=== PATIENT | male | born 1970 | race African-American/Black ===

== ENCOUNTER 2019-06-21 14:24 | Emergency (ER) | payer OTHER ==
[~2019-06-21] VITALS: Ht 172.7 cm; Wt 81.6 kg
[2019-06-21] MEDS ORDERED: ZYPREXA5 MG ORAL (14:36)
[2019-06-21] MEDS ORDERED: CYMBALTA30 MG ORAL (14:36)
[2019-06-21] MEDS ORDERED: DEPAKOTE250 MG PO (14:36)
[2019-06-21] MEDS ORDERED: FLOMAX0.4 MG ORAL (14:36)
[2019-06-21 14:40] VITALS: BP 138/78
--- NOTE | 2019-06-21 14:44 | Emergency Room Report ---
History of Present Illness General Chief Complaint: Upper Extremity Injury Source: Patient Present Illness HPI Just prior to coming here the patient fell out of a wheeled chair. He caught his right forearm. He has pain there. Denies any numbness. He does not take any medication. Denies any injury to his back or head. The pain is rated 10/ 10. Aching. He thinks her may be a crack in the bone. He denies other medical problems. Patient does smoke and occasionally uses THC. 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. Allergies: Coded Allergies: No Known Allergies (Unverified , 06/21/19) Patient History Past Medical History: see triage record Social History: Reports: smoking, drug use; Denies: alcohol use Social History Narrative Mental health resident Reviewed Nursing Documentation: PMH: Agreed; PSxH: Agreed Nursing Documentation-PM Past Medical History: No History, Except For Hx Cardiac Problems: No Hx Hypertension: No Hx Pacemaker: No Hx Asthma: No Hx COPD: Yes Hx Diabetes: No Hx Cancer: No Hx Gastrointestinal Problems: No Hx Dialysis: No History Of Psychiatric Problem: Yes - BIPOLAR Hx Neurological Problems: No Hx Cerebrovascular Accident: No Hx Seizures: No Review of Systems Constitutional: Denies: fever Musculoskeletal: Reports: see HPI Skin: Reports: see HPI Neurological: Reports: see HPI Hematologic/Lymphatic: Denies: easy bleeding, easy bruising Physical Exam Vital Signs Date Time Temp Pulse Resp B/P (MAP) Pulse Ox O2 Delivery O2 Flow Rate FiO2 06/21/19 14:30 98.8 90 18 138/78 (98) 99 Room Air Sp02 EP Interpretation: reviewed, normal General Appearance: well appearing, no apparent distress, GCS 15 Head: normocephalic, atraumatic Eyes: bilateral eye normal inspection, bilateral eye PERRL, bilateral eye EOMI ENT: moist mucus membranes Neck: full range of motion, supple Cardiovascular #1: regular rate, rhythm Cardiovascular #2: 2+ radial (R) - Good capillary fill Gastrointestinal: normal inspection Musculoskeletal: gait/station normal, digits/nails normal, tenderness - Mid right forearm no deformity, other - Elbow and shoulder without pain, wrist is stable Neurologic: alert, other - Distal neurovascular intact Psychiatric: mood/affect normal Skin: normal color, no rash Medical Decision Making Diagnostic Impression: Primary Impression: Contusion of right forearm Qualified Codes: S50.11XA - Contusion of right forearm, initial encounter ER Course Patient presents with right upper extremity injury. Differential includes fracture, contusion amongst others. X-rays indicated as well as ibuprofen. Forearm x-ray without fracture. Discussed findings with patient. Also discussed treatment plan. Sling applied by tech. Position excellent. Other X-Ray Diagnostic Results Other X-Ray Diagnostic Results : # of Views/Limited Vs Complete: 1 View Indication: Pain EP Interpretation: Yes Interpretation: no dislocation, no soft tissue swelling, no fractures Impression: No acute disease Electronically Signed by: Electronically signed by Jason Porter MD Last Vital Signs Date Time Temp Pulse Resp B/P (MAP) Pulse Ox O2 Delivery O2 Flow Rate FiO2 06/21/19 16:09 98.7 87 15 138/75 100 Room Air Status: improved Disposition: HOME, SELF-CARE Condition: Improved Scripts Acetaminophen (Tylenol) 325 Mg Tablet 650 MG ORAL Q6H PRN for Prn Pain/Headache/Temp > 101, #20 TAB 0 Refills Prov: Jason Porter MD 06/21/19 Ibuprofen* (MOTRIN*) 600 Mg Tablet 600 MG ORAL Q6H PRN for For Pain, #20 TAB 0 Refills Prov: Jason Porter MD 06/21/19 Jason Porter MD Jun 21, 2019 14:44
--- NOTE | 2019-06-21 15:50 | Diagnostic Imaging Report ---
EXAM: XR Right Forearm, 2 Views CLINICAL HISTORY: TRAUMA TECHNIQUE: Frontal and lateral views of the right forearm. COMPARISON: No relevant prior studies available. FINDINGS: Bones/joints: No acute fracture. Soft tissues: No radiodense foreign body. IMPRESSION: No acute fracture.
[2019-06-21] MEDS ORDERED: IBUPROFEN600 MG ORAL (15:57)
[2019-06-21] MEDS ORDERED: TYLENOL325 MG ORAL (15:57)
[2019-06-21 16:09] VITALS: BP 138/75
[2019-06-21] MEDS ORDERED: HYDROcodone/Acetamin 5/325 tab ORAL ONE (16:15)
== END 2019-06-21 16:09 | disposition home or self-care (01) ==
LOC: EMR 15:15
DX: S50.11XA Contusion of right forearm, initial encounter (principal); W05.0XXA Fall from non-moving wheelchair, initial encounter; Y92.9 Unspecified place or not applicable; F17.200 Nicotine dependence, unspecified, uncomplicated; J44.9 Chronic obstructive pulmonary disease, unspecified; F31.9 Bipolar disorder, unspecified
CPT/HCPCS: 73090; Z7502; 99283